=== PATIENT | male | born 1985 | race Caucasian/White ===

== ENCOUNTER 2017-01-20 22:31 | Emergency (ER) | payer OTHER ==
--- NOTE | 2017-01-20 23:28 | ER PHYSICIAN DOCUMENTATION ---
Physician Documentation [facility] Name:Jose Ramon Gonsales Age:31 yrs Sex:Male :1985 Arrival Date:01/20/2017 Time:22:31 Bed6 Private MD:Jonh Patel ED, Chris Disposition: 01/20/17 23:14 Discharged to Home/Self Care. Impression: Distal Fibula Fracture - : Possible Hairline Fracture. - Condition is Good. - Discharge Instructions: ANKLE FRACTURE (Distal Fibula), closed, Ankle - WALKER BOOT. - Medical Reconciliation form form. - Follow up: Jonh Patel DO; When: 1 week; Reason: Recheck today's complaints, Continuance of care. - Problem is new. - Symptoms have improved. - Notes: Ice and elevate above your heart for two days. Take Ibuprofen 600mg by mouth every 6 hours with food for 4 - 5 days. Wear the Walking Boot for 7 - 10 days. Follow up with Dr. Patel in 7 - 10 days. HPI: 01/20 22:35 This 31 yrs old Male presents to ER via Wheelchair with complaints of Ankle cd Injury - RIGHT. 22:35 The patient presents with swelling, tenderness. The complaints affect the right ankle, cd right ankle. Onset: The symptom(s)/episode began/occurred acutely, today. Context: The problem was sustained outdoors, resulted from a mis-step by the patient, The mechanism of injury involved inversion of the affected ankle. 22:35 Associated signs and symptoms: The patient has no apparent associated signs or cd symptoms. Severity of symptoms: At their worst the symptoms were moderate, in the emergency department the symptoms are unchanged. The patient has not experienced similar symptoms in the past. Historical: - Allergies: No known drug Allergies; - Home Meds: 1. None - PMHx: None; - PSHx: None; - Tetanus: < 10 years. - Ebola Screening: : Patient denies exposure to infectious person. Patient denies travel to an Ebola-affected area in the 21 days before illness onset. . - Immunization history: Flu Vaccine None. - Social history: Smoking status: Patient uses tobacco products, current some day smoker. Patient uses alcohol only on a social basis. - Code Status:: Full code. ROS: 22:35 Constitutional: Negative for fever, poor PO intake. cd 22:35 MS/extremity: Positive for injury or acute deformity, swelling, tenderness, of the anterior aspect of right ankle, Negative for deformity, paresthesias. 22:35 Skin: Negative for acute changes. Exam: 22:35 Constitutional: The patient appears alert, awake, in obvious distress, mildly cd distressed. 22:35 Musculoskeletal/extremity: Extremities: grossly normal except: noted in the right ankle: swelling, tenderness, ROM: limited active range of motion due to pain, Circulation is intact in all extremities. Sensation intact. Calcaneus exam normal. 22:35 Skin: Exam negative for acute changes. Vital Signs: 22:37 BP 148 / 71; Pulse 110; Resp 18; Temp 99(TE); Pulse Ox 91% on R/A; Weight 102.06 kg; lb Height 6 ft. (182.88 cm); Pain 6/10; 23:26 BP 122 / 70; Pulse 94; Resp 14; Pain 4/10; lb 22:37 Body Mass Index 30.52 (102.06 kg, 182.88 cm) lb MDM: 22:41 Patient medically screened. cd 23:10 Data reviewed: vital signs, nurses notes, old medical records, and as a result, I will cd discharge patient. Data interpreted: Pulse oximetry: on room air is 91 %. Interpretation: normal. Counseling: I had a detailed discussion with the patient and/or guardian regarding: the historical points, exam findings, and any diagnostic results supporting the discharge/admit diagnosis, the need for outpatient follow up, for a recheck, with the patient's primary care provider, to return to the emergency department if symptoms worsen or persist or if there are any questions or concerns that arise at home. Response to treatment: the patient's symptoms have markedly improved after treatment, and as a result, I will discharge patient. 01/21 09:09 Order name: ANKLE; [address] [id number]; Complete Time: 22:53 EDMS 01/22 22:53 Interpretation: Normal Except: Possible Right distal fibular fracture, non-displaced. cd 01/20 22:41 Order name: Ice Packs; Complete Time: 23:03 cd 01/20 23:17 Order name: Walking Boot; Complete Time: 23:27 cd Dispensed Medications: No medications were administered Signatures: Saran Vega MD MD cd Bollock, Kaitlyn lb
--- NOTE | 2017-01-20 23:28 | ER NURSING DOCUMENTATION ---
Nurse's Notes [facility] Name:Jose Ramon Gonsales Age:31 yrs Sex:Male :1985 Arrival Date:01/20/2017 Time:22:31 Bed6 Private MD:Jonh Patel Diagnosis:Distal Fibula Fracture-: Possible Hairline Fracture Presentation: 01/20 22:35 Presenting complaint: Patient states: right ankle injury, rolled while running. able to lb weight bear, swelling to lateral aspect. c/o numbness to toes. Transition of care: patient was not received from another setting of care. Notified ED Physician of Dr. Vega notified. 22:35 Acuity: ARLINE 4 lb 22:35 Method Of Arrival: Wheelchair lb Triage Assessment: 22:36 General: Appears uncomfortable, Behavior is appropriate for age, pleasant. Pain: lb Complains of pain in anterior aspect of right ankle Pain does not radiate. Pain currently is 6 out of 10 on a pain scale. Musculoskeletal: Circulation, motion, and sensation intact Capillary refill other swelling lateral aspect right ankle Swelling. Historical: - Allergies: No known drug Allergies; - Home Meds: 1. None - PMHx: None; - PSHx: None; - Tetanus: < 10 years. - Ebola Screening: : Patient denies exposure to infectious person. Patient denies travel to an Ebola-affected area in the 21 days before illness onset. . - Immunization history: Flu Vaccine None. - Social history: Smoking status: Patient uses tobacco products, current some day smoker. Patient uses alcohol only on a social basis. - Code Status:: Full code. Screenin:39 Infectious Disease Risk None. Abuse screen: Denies threats or abuse. Denies injuries lb from another. Nutritional screening: No deficits noted. Assessment: 22:38 See Triage Assessment done by same RN. Pain: Complains of pain in anterior aspect of lb right ankle Pain does not radiate. Pain currently is 6 out of 10 on a pain scale. Pain began 2 hours ago. Vital Signs: 22:37 BP 148 / 71; Pulse 110; Resp 18; Temp 99(TE); Pulse Ox 91% on R/A; Weight 102.06 kg; lb Height 6 ft. (182.88 cm); Pain 6/10; 23:26 BP 122 / 70; Pulse 94; Resp 14; Pain 4/10; lb 22:37 Body Mass Index 30.52 (102.06 kg, 182.88 cm) ED Course: 22:33 Patient arrived in ED. em2 22:33 Jonh Patel DO is Private Physician. em2 22:34 Kaitlyn Layne is Primary Nurse. lb 22:35 Triage completed. lb 22:39 Valuables Remains with patient. lb 22:41 Saran Vega MD is Attending Physician. cd 22:41 Port Xray Completed. william 22:49 Affected limb iced. lb 23:13 Jonh Patel DO is Referral Physician. cd 23:26 Crutch training done. Walking boot applied. lb Administered Medications: No medications were administered Outcome: 23:14 Discharge ordered by . cd 23:26 Discharged to home ambulatory, with crutches. lb 23:26 Condition: stable 23:26 Discharge Assessment: Patient awake, alert and oriented x 3. No cognitive and/or functional deficits noted. Patient verbalized understanding of disposition instructions. 23:26 Instructed on crutch walking, discharge instructions, follow up and referral plans. Ortho Care 23:27 Patient left the ED. 01/21 15:38 Discharge F/U Call: Spoke with: patient. Signatures: Saran Vega MD MD cd Abbott, Laura lea Meinking-Fabricio booker em2 Alessandra Diaz Kaitlyn Layne
--- NOTE | 2017-01-21 08:46 | RADIOLOGY REPORT ---
Four views of the right ankle demonstrate findings raising concern for nondisplaced transverse fracture of the distal fibula. The tibia, talus and mortise are intact. The visualized joints appear unremarkable. IMPRESSION: Question nondisplaced transverse fracture of right distal fibula. If clinically indicated, further evaluation with CT scanning would be of benefit. MTDD
== END 2017-01-20 23:27 | disposition home or self-care (01) ==
LOC: ER 22:31
DX: S96.811A Strain of other specified muscles and tendons at ankle and foot level, right foot, initial encounter (principal); W18.49XA Other slipping, tripping and stumbling without falling, initial encounter; Y92.89 Other specified places as the place of occurrence of the external cause; Y93.89 Activity, other specified; Y99.0 Civilian activity done for income or pay
CPT/HCPCS: 99283